=== PATIENT | male | born 1995 | race Caucasian/White ===

== ENCOUNTER → 2017-02-08 | Outpatient (CLI) | payer BC ==
--- NOTE | 2017-02-08 08:41 | MRI ---
EXAM DESCRIPTION: MRI lumbar spine CLINICAL HISTORY: Lumbar spine pain. Baseball injury. Pain occasionally radiating down the right leg COMPARISON: None Available. TECHNIQUE: Standard sagittal and axial MR images of the lumbar spine. FINDINGS: L5-S1: Moderate facet arthrosis. In addition, there is a defect in the left superior articular pillar of S1 with a horizontal chronic defect best seen on sagittal T2 images 1 -3. A developmentally small superior articular pillar of right S1 without a defect. No pars interarticularis defect of L5. Disc degeneration with moderate loss of disc height and minimal grade 1 anterolisthesis L5 on S1. Large Schmorl's node anterior superior endplate of S1 without marrow edema. Posterior annular fissure and broad-based shallow protrusion left paracentral abutting and minimally posteriorly displacing the descending left S1 nerve. Protrusion is about 4 mm beyond the endplate axial T1 image 10 and axial T2 image 3. Mild foraminal narrowing without exiting L5 nerve impingement L4-5: Mild facet arthrosis and hypertrophy. Disc desiccation with minimal protrusion and endplate osteophyte ridging. No canal stenosis or descending nerve impingement. Mild foraminal narrowing without exiting L4 nerve impingement. Large Schmorl's node anterior superior endplate L5 without edema L3-4: Mild facet arthrosis and hypertrophy. No focal disc abnormality, canal or foraminal narrowing L2-3: Mild facet arthrosis and hypertrophy. No focal disc abnormality, canal or foraminal narrowing L1-2: No canal or foraminal narrowing T12-L1: No canal or foraminal narrowing Conus medullaris and cauda equina are normal. No marrow edema or focal marrow lesion No paravertebral muscle abnormality No mass or adenopathy in the retroperitoneum IMPRESSION: L5-S1: A defect is present in the superior articular pillar of S1 on the left. Moderate bilateral facet arthrosis and minimal grade 1 anterolisthesis. Posterior annular fissure and protrusion impinging the descending left S1 nerve Large Schmorl's node anterior superior endplate L5 and S1 without marrow edema Electronically signed by: Dakota Maynard MD 02/08/2017 8:40 AM CDT
== END | disposition home or self-care (01) ==
LOC: MRI 06:43
PROVIDERS: ATTEND Family Medicine
DX: M54.5 Low back pain (principal); M47.896 Other spondylosis, lumbar region

== ENCOUNTER → 2018-03-11 | Outpatient (CLI) | payer OTHER ==
--- NOTE | 2018-03-11 15:29 | MRI ---
MRI right knee without contrast INDICATION: Knee pain medial side no specific injury initial encounter TECHNIQUE: Noncontrast MR imaging right knee standard protocol FINDINGS: Trace Rodriguez's cyst fluid. Small joint effusion. Normal patellofemoral alignment. Vague chondral fissuring grade 2 midline trochlear sulcus. No advanced patellar chondrosis. Cruciate ligaments are intact. Extensor tendons are intact. Minimal degenerative signal medial meniscus without discrete articular surface tear. No discrete lateral meniscal tear. Minimal fluid/cystic change proximal tib-fib joint without advanced arthrosis fracture or traumatic separation. No acute internal derangement IMPRESSION: Trace Rodriguez's cyst fluid and minimal joint effusion Minimal chondral fissuring midline trochlea Minimal degenerative signal medial meniscus without discrete tear Electronically signed by: Bruce Mercado MD 03/11/2018 3:27 PM CDT
== END ==
LOC: MRI 11:32
PROVIDERS: ATTEND Family Medicine
DX: M25.561 Pain in right knee (principal); M71.21 Synovial cyst of popliteal space [Baker], right knee